=== PATIENT | female | born 1970 | race Caucasian/White ===

== ENCOUNTER 2019-11-19 11:24 | Emergency (ER) | payer OTHER, MEDICARE, SELFPAY ==
[2019-11-19 11:26] VITALS: BP 148/91; PULSE 105; RESP 18; TEMP 36.3; O2SAT 99
--- NOTE | 2019-11-19 11:56 | PC.NURSE ---
Pt [place] ED [place]. Pt is requesting her PTT and INR to be checked. Pt has been on [facility] for 7-8 years. 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 Pt states she has PTSD and the fireworks make her freak out. Pt states that last night she called a [facility] hotline just to talk to someone , pt states that hotline called police department to come talk to pt. Pt states police tried to get pt to come to hospital last night but pt denied. Pt states how she deals with anxiety is cutting herself and taking more of her medication then prescribed. Pt states that her [employer] [place] is aware of her cutting and says that she know is she not trying to kill herself because of the way she cuts her arms. Pt denies any SI or HI ideation. Pt does have a service dog in room with her. I informed charge nurse of this all.
--- NOTE | 2019-11-19 12:42 | ED.GENADULT ---
HPI - General Adult General Chief complaint: Unspecified Stated complaint: multiple complaints Time Seen by Provider: 11/19/19 12:12 History of Present Illness HPI narrative: Patient is a 49 y/o female complaining of not feeling well in general. She states that she takes Warfarin for factor V Leiden and blood clots in the past. She would like to have her INR checked. She states that she suffers from chronic PTSD. She also has a nose bleed. Related Data Allergies Allergy/AdvReac Type Severity Reaction Status Date / Time No Known Allergies Allergy Verified 11/19/19 11:30 Review of Systems Constitutional: Constitutional: Denies chills, Denies fever(s), Denies headache(s) and Reports weakness Eyes: Eyes: Denies blurry vision ENT: Denies headache(s), Reports epistaxis and Denies neck pain Cardiovascular: Cardiovascular: Denies chest pain and Denies dyspnea Respiratory: Respiratory: Denies cough and Denies dyspnea Gastrointestinal: Gastrointestinal: Denies abdominal pain, Denies diarrhea, Denies nausea and Denies vomiting Genitourinary: Genitourinary: Denies hematuria and Denies dysuria Musculoskeletal: Musculoskeletal: Denies back pain and Denies neck pain Neurologic: Denies headache(s) and Denies weakness Exam Const: General: no acute distress and well developed Orientation/consciousness: oriented to person, oriented to place, oriented to time and patient oriented x3 HENMT: Head: normocephalic Ears: external ears normal General nose exam: Normal external nose present and Epistaxis present Eyes: General: appearance normal, both eyes and all related structures Conjunctivae: conjunctivae normal Neck: Neck: normal visual inspection and full ROM Chest: Chest palpation & inspection: normal inspection of the chest and no tenderness Resp: Effort & Inspection: normal respiratory effort Auscultation: clear to auscultation bilaterally Cardio: Rate: regular rate Rhythm: regular rhythm GI: GI Palp: No abdominal tenderness and Yes Soft to palpation Skin: General skin exam: normal color and turgor normal Neuro: General: oriented to person, oriented to place, oriented to time and patient oriented x3 Cognition (Neuro): normal cognition Extrem: General: normal to inspection, full ROM and no pedal edema Psych: Appearance: grossly normal Mental Status: mental status grossly normal Affect: normal affect Course Reevaluation(s) Reevaluation #1: Rechecked. Nose bleed has stopped. Date: 11/19/19 Vital Signs Vital signs: Vital Signs Temperature 36.3 C L 11/19/19 11:26 Pulse Rate 105 H 11/19/19 11:26 Respiratory Rate 18 11/19/19 11:26 Blood Pressure 148/91 H 11/19/19 11:26 Pulse Oximetry 99 11/19/19 11:26 Temperature 36.3 C L 11/19/19 11:26 Pulse Rate 100 11/19/19 13:26 Respiratory Rate 15 11/19/19 13:26 Blood Pressure 135/75 11/19/19 13:26 Pulse Oximetry 100 11/19/19 13:26 Medical Decision Making Vital Signs Vital Signs: Vital Signs Temperature 36.3 C L 11/19/19 11:26 Pulse Rate 105 H 11/19/19 11:26 Respiratory Rate 18 11/19/19 11:26 Blood Pressure 148/91 H 11/19/19 11:26 Pulse Oximetry 99 11/19/19 11:26 Temperature 36.3 C L 11/19/19 11:26 Pulse Rate 100 11/19/19 13:26 Respiratory Rate 11/19/19 13:26 Blood Pressure 135/75 11/19/19 13:26 Pulse Oximetry 100 11/19/19 13:26 Lab Data Result diagrams: 11/19/19 12:34 11/19/19 12:34 Labs: Lab Results 11/19/19 11/19/19 11/19/19 Range/Units 12:34 12:34 12:34 WBC 6.2 (4.5-10.0) K/mm3 RBC 4.97 (4.2-5.4) M/mm3 Hgb 13.5 (12.0-15.0) g/dL Hct 41.0 (37.0-47.0) % MCV 82.5 (80-100) fl MCH 27.2 (26-34) pg MCHC 32.9 (32-36) g/dl RDW 13.9 (11.5-14.5) % Plt Count 186 (150-375) k/mm3 MPV 9.9 (7.4-10.4) fl Immature Gran % (Auto) 0.2 (0-0.5) % Neut % (Auto) 75.9 H (45.5-73.1) % Lymph % (Auto) 17.3 L (18.3-
[2019-11-19 13:09] LABS: Basophils Percent Auto 0.5 % (0.2-1.2); Eosinophils Percent Auto 0.5 % (0-4.4); Hemoglobin 13.5 g/dL (12.0-15.0); Immature Granulocyte Absolute 0.01 K/mm3 (0.00-0.031); Immature Granulocyte Percent A 0.2 % (0-0.5); Lymphocytes Absolute Auto 1.07 K/mm3 (0.9-3.2); Lymphocytes Percent Auto 17.3 % (18.3-44.2); Mean Corpuscular HGB Conc 32.9 g/dl (32-36); Mean Corpuscular Hemoglobin 27.2 pg (26-34); Mean Corpuscular Volume 82.5 fl (80-100); Mean Platelet Volume 9.9 fl (7.4-10.4); Monocytes Absolute Auto 0.4 K/mm3 (0.1-0.6); Monocytes Percent Auto 5.6 % (2.6-8.5); Neutrophils Absolute Auto 4.7 K/mm3 (1.3-6.7); Neutrophils Percent Auto 75.9 % (45.5-73.1); Platelet Count Result 186 k/mm3 (150-375); Red Blood Count 4.97 M/mm3 (4.2-5.4); Red Cell Distribution Width 13.9 % (11.5-14.5); White Blood Count 6.2 K/mm3 (4.5-10.0)
[2019-11-19 13:11] LABS: INR 2.6
[2019-11-19 13:12] LABS: Partial Thromboplastin Time 41.7 SECONDS (22.3-36.8)
[2019-11-19 13:13] LABS: Blood Urea Nitrogen 13 mg/dL (7-17); Calcium 8.9 mg/dL (8.4-10.2); Carbon Dioxide 24 mmol/L (22-30); Chloride 108 mmol/L (98-107); Estimated CRCL calculation 66 ml/min; Estimated Glomerular Filt Rate > 60; Glucose 118 mg/dL (65-105); Potassium 3.5 mmol/L (3.4-5.0); Sodium 138 mmol/L (137-145)
[2019-11-19 13:26] VITALS: BP 135/75; PULSE 100; RESP 15; O2SAT 100
== END 2019-11-19 14:10 | disposition home or self-care (01) ==
PROVIDERS: Emergency Provider Emergency Medicine
DX: R04.0 Epistaxis (principal); Z79.01 Long term (current) use of anticoagulants
CPT/HCPCS: 36415; 80048; 85025; 85610; 85730; 99283